=== PATIENT | female | born 1950 | race Caucasian/White ===

== ENCOUNTER 2019-08-11 12:04 | Outpatient (CLI) | payer MEDICARE, MEDICAID ==
[~2019-08-11 12:04] MED LIST: REGADENOSON 0.4 MG/5 ML SYRINGE ONE
== END 2019-08-11 23:59 | disposition home or self-care (01) ==
LOC: CFH 12:04
PROVIDERS: ATTEND Internal Medicine Cardiovascular Disease
DX: R07.9 Chest pain, unspecified (principal); R94.31 Abnormal electrocardiogram [ECG] [EKG]
CPT/HCPCS: 78452; 93017; 93306; A9502; J2785